=== PATIENT | male | born 1965 | race Two or more races ===

== ENCOUNTER 2019-02-01 09:25 | Day surgery (SDC) | payer MEDICARE, OTHER ==
[~2019-02-01] VITALS: Ht 172.7 cm; Wt 109.8 kg
[2019-02-01 09:58] VITALS: Ht 172.7 cm; Wt 109.8 kg
[2019-02-01] MEDS ORDERED: BUMETANIDE PO (10:14)
[2019-02-01] MEDS ORDERED: METALOZONE PO (10:14)
[2019-02-01] MEDS ORDERED: POTASSIUM PO (10:14)
[2019-02-01] MEDS ORDERED: ENTRESTO PO (10:14)
[2019-02-01] MEDS ORDERED: CARVEDILOL PO (10:14)
[2019-02-01] MEDS ORDERED: ASPI-817 PO (10:14)
[2019-02-01] MEDS ORDERED: RANITIDINE PO (10:14)
[2019-02-01] MEDS ORDERED: MAGNESIUM PO (10:14)
[2019-02-01] MEDS ORDERED: SPIRONOLACTONE PO (10:14)
[2019-02-01] MEDS ORDERED: ATORVASTATIN PO (10:14)
--- NOTE | 2019-02-01 10:15 | PREAC ---
Date/Time of Note Date/Time of Note DATE: 02/01/19 TIME: 10:11 Anesthesia Eval and Record Evaluation Time Pre-Procedure Interview DATE: 02/01/19 TIME: 10:11 Age 53 Sex male NPO: 8 hrs Preoperative diagnosis Abdominal pain, colon screening Planned procedure EGD, Colonoscopy Past Medical History Past Medical History: Includes Cardio: HTN, Dyslipidemia, MA, CAD, PTCA/Stent, CHF Surgery & Anesthesia Issues No known issue Meds Anticoagulation: Yes Beta Art within 24 hr: Yes Meds reviewed: Yes Allergies Allergies Reviewed: Yes Labs/Studies Labs Reviewed: Reviewed by anesthesiologist test: N/A Pre-procedure Exam Last vitals BP:105/67, P:68, Spo2:100%, T:98,9 Airway: Adequate mouth opening, Adequate thyromental dist Mallampati: Mallampati II Teeth: Normal Lung: Normal Heart: Normal ASA Physical Status ASA physical status: 4 Emergency: None Planned Anesthetic General/MAC: MAC Planned Pain Management Parenteral pain med Pre-operative Attestations Prior to commencing anesthesia and surgery, the patient was re-evaluated, there was verification of: *The patient's identity *The results of appropriate recent lab work and preoperative vital signs *The above evaluation not changing prior to induction *Anesthetic plan, risk benefits, alternative and complications discussed with patient/family; questions answered; patient/family understands, accepts and wishes to proceed. LORENZO OTERO MD Feb 01, 2019 10:15
[2019-02-01] MEDS ORDERED: PROPOFOL 60 ML ONE (10:19)
[2019-02-01] MEDS ORDERED: LIDOCAINE 2% (SDV) 5 ML INJ ONE (10:19)
[2019-02-01] MEDS ORDERED: FENTAnyl 50 MCG/ML VIAL ONE (10:19)
[2019-02-01 10:24] VITALS: BP 114/64; PULSE 72; RESP 20
[2019-02-01] MEDS ORDERED: FENTAnyl 50 MCG/ML VIAL IV PRN (11:00)
[2019-02-01] MEDS ORDERED: METOCLOPRAMIDE 10 MG INJ IV PRN (11:00)
[2019-02-01] MEDS ORDERED: ONDANSETRON 4 MG INJ IV PRN (11:00)
--- NOTE | 2019-02-01 11:02 | PAC ---
Date/Time of Note Date/Time of Note DATE: 02/01/19 TIME: 11:02 Post-Anesthesia Notes Post-Anesthesia Note Activity: WNL Respiratory function: WNL Cardiovascular function: WNL Mental status: Baseline Pain reasonably controlled: Yes Hydration appropriate: Yes Nausea/Vomiting absent: Yes Comments BP:115/56, P:78, Spo2:100%, T:98,9 LORENZO OTERO MD Feb 01, 2019 11:02
[2019-02-01 11:21] VITALS: BP 106/71; PULSE 80; RESP 14
== END 2019-02-01 12:54 | disposition home or self-care (01) ==
LOC: GIL 09:25
PROVIDERS: ATTEND Internal Medicine Gastroenterology
DX: Z12.11 Encounter for screening for malignant neoplasm of colon (principal); D12.5 Benign neoplasm of sigmoid colon; K64.4 Residual hemorrhoidal skin tags; D12.8 Benign neoplasm of rectum; K20.8 Other esophagitis; K29.80 Duodenitis without bleeding; K29.00 Acute gastritis without bleeding; I11.0 Hypertensive heart disease with heart failure; I50.9 Heart failure, unspecified; E78.5 Hyperlipidemia, unspecified; I25.2 Old myocardial infarction; I25.10 Atherosclerotic heart disease of native coronary artery without angina pectoris
CPT/HCPCS: 43239; 45380; 45385; 88305; J3010